=== PATIENT | female | born 1985 | race Caucasian/White ===

== ENCOUNTER 2023-07-08 10:23 | Emergency (ER) | payer SELFPAY ==
[2023-07-08 10:26] VITALS: BP 166/95; PULSE 81; RESP 16; TEMP 36.5; O2SAT 97; BMI 28.2
--- NOTE | 2023-07-08 10:41 | XR_ITS ---
[place] [id number] Patient Name: ROMY RODRIGUEZ MRN: [id number] date: 1985 Sex: F Assigned Patient Location: ED.MAIN Current Patient Location: ER Accession/Order Number: [id number] Exam Date: 07/08/2023 10:55 Report Date: 07/08/2023 11:36 At the request of: IMANI VERDUZCO Procedure: XR ankle PORFIRIO min 3V STUDY: XR ankle PORFIRIO min 3V, [id number] HISTORY: fall COMPARISON: Left ankle x-rays 02/15/2020 FINDINGS: Right ankle: No acute fracture, dislocation, or suspicious osseous lesion. No significant osteoarthritis. Small plantar calcaneal spur and mild Achilles insertional enthesopathy. Left ankle: No acute fracture, dislocation, or suspicious osseous lesion. A bone anchor is present in the medial aspect of the navicular. Minimal osteoarthritis of the dorsal midfoot. Medium-sized calcaneal spur and moderate Achilles insertional enthesopathy. IMPRESSION: No acute osseous abnormality. Electronically authenticated by: ASPEN BOWERS Date: 07/08/2023 11:36
[2023-07-08] MEDS: KETOROLAC TROMETHAMINE 30 MG/ML VIAL IM (10:48)
--- NOTE | 2023-07-08 11:22 | ED_ITS ---
HPI - Extremity Injury (Lower) General Chief Complaint: Extremity Injury, Lower Stated Complaint: LOWER EXTREMITY INJURY/ FALL Time Seen by Provider: 07/08/23 10:38 Source: patient Mode of arrival: Wheelchair Limitations: no limitations History of Present Illness HPI Narrative: The patient came to the ER after she slid off the steps going down,she mentioned that steps worse slippery and she did feel like she twisted both ankles she started having pain after that The patient mentioned that the left ankle hurts more than the right she was able to put some weight but she still having pain No head injury no other fall or any trauma or complaint Related Data Home Medications Medication Instructions Recorded Confirmed celecoxib 200 mg capsule 200 mg PO BID 07/08/23 07/08/23 escitalopram oxalate 10 mg tablet 5 mg PO DAILY 07/08/23 07/08/23 methylphenidate HCl 54 mg 54 mg PO DAILY 07/08/23 07/08/23 tablet,extended release 24 hr pantoprazole 40 mg granules 40 mg PO DAILY 07/08/23 07/08/23 delayed-release for susp in packet (Protonix) valacyclovir 500 mg tablet 500 mg PO BID 07/08/23 07/08/23 Previous Rx's Medication Instructions Recorded diclofenac sodium 50 mg 50 mg PO Q12H PRN pain #10 tabs 07/08/23 tablet,delayed release Allergies Allergy/AdvReac Type Severity Reaction Status Date / Time codeine AdvReac Severe Vomiting Verified 07/08/23 10:30 Review of Systems ROS Status of ROS 10 or more systems reviewed and unremark able except as noted in history and below PFSH PFSH Social History Smoking status: Never smoker Exam Narrative Exam Narrative: Nurses notes and vital signs reviewed and patient is not hypoxic. General: Well-appearing and in no apparent distress. Skin: Warm, dry, no pallor noted. No rash. Head: Normocephalic, atraumatic. Neck: Supple, non-tender. Eye: Pupils are equal, round and EOMI. No scleral icterus. Ears, Nose, Mouth, and Throat: TM are clear, no nasal mucosal hypertrophy. Oral mucosa is moist, no posterior oropharynx erythema, uvula is mid-line Cardiovascular: Regular Rate and Rhythm without murmur, gallop or rub. Respiratory: No accessory muscle use or respiratory distress. Lungs are clear to auscultation, no wheezing, rales or rhonchi Chest Wall: no tenderness Back: No midline thoracic or lumbar vertebral tenderness. No CVA tenderness Musculoskeletal: normal ROM, no calf or popliteal tenderness, there is mild edema on the left ankle compared to the right and the patient have tenderness upon palpation of the lateral malleolus of the left, GI: Abdomen is soft, non-distended. Normal bowel sounds. No masses appreciated. No tenderness to palpation. No rebound, guarding, or rigidity noted. Neurological: A&O x4. No cranial nerve dysfunction observed. No truncal ataxi a. Moves all extremities. Sensation intact. Psychiatric: Cooperative and interactive. Normal mood and affect. Constitutional Vital Signs, click to edit/add: Last Vital Signs Temp 97.7 F 07/08/23 10:26 Pulse 81 07/08/23 10:26 Resp 16 07/08/23 10:26 BP 166/95 H 07/08/23 10:26 Pulse Ox 97 07/08/23 10:26 O2 Del Method Room Air 07/08/23 10:26 Course Vital Signs Vital signs: Vital Signs Temperature 97.7 F 07/08/23 10:26 Pulse Rate 81 07/08/23 10:26 Respiratory Rate 16 07/08/23 10:26 Blood Pressure 166/95 H 07/08/23 10:26 Pulse Oximetry 97 07/08/23 10:26 Oxygen Delivery Method Room Air 07/08/23 10:26 Temperature 97.7 F 07/08/23 10:26 Pulse Rate 81 07/08/23 10:26 Respiratory Rate 16 07/08/23 10:26 Blood Pressure 166/95 H 07/08/23 10:26 Pulse Oximetry 97 07/08/23 10:26 Oxygen Delivery Method Room Air 07/08/23 10:26 MDM - Extremity Injury (Lower) MDM Narrative Medical decision making narrative: X-ray of both ankles showed no acute significant pathology the patient was treated in the ER with Toradol discharged home with Voltaren p.o. after stopping her celecoxib that she takes chronically The patient instructed about not taking both medication together and she also had Ed wrap applied and she will follow-up with outpatient with her primary care after rest of 2 days The patient is to follow up with primary care physician in next 2-3 days or to return to the emergency department should any of the signs or symptoms worsen or new symptoms develop. The patient agrees with the following Diagnosis and Treatment plan and the patient will be discharged home. Discharge Plan Discharge Chief Complaint: Extremity Injury, Lower Clinical Impression: Ankle sprain and strain Patient Disposition: Home, Self-Care Time of Disposition Decision: 12:10 Condition: Good Mode of Transportation: Private Vehicle Prescriptions / Home Meds: New diclofenac sodium 50 mg tablet,delayed release (DR/EC) 50 mg PO Q12H PRN (Reason: pain) Qty: 10 0RF Held celecoxib 200 mg capsule 200 mg PO BID Hold Instructions: Resume on 07/14/23. use voltaren po bid for 5 days then go back to ur own meds No Action pantoprazole [Protonix] [address] for susp in packet 40 mg PO DAILY valacyclovir 500 mg tablet 500 mg PO BID methylphenidate HCl 54 mg tablet extended release 24hr 54 mg PO DAILY escitalopram oxalate 10 mg tablet 5 mg PO DAILY Instructions: Ankle Sprain (DC) Stand Alone Forms: Portal Instructions Referrals: ROMEO WOOTEN [Primary Care Provider] - 1 week
== END 2023-07-08 12:21 | disposition home or self-care (01) ==
PROVIDERS: Emergency Provider Emergency Medicine; PCP Family Medicine
DX: S93.402A Sprain of unspecified ligament of left ankle, initial encounter (principal); S96.912A Strain of unspecified muscle and tendon at ankle and foot level, left foot, initial encounter; X50.1XXA Overexertion from prolonged static or awkward postures, initial encounter; Z79.899 Other long term (current) drug therapy
CPT/HCPCS: 73610; 96372; 99284